=== PATIENT | male | born 2000 | race Caucasian/White ===

== ENCOUNTER 2023-12-09 05:07 | Emergency (ER) | payer OTHER ==
[~2023-12-09] VITALS: Ht 172.7 cm; Wt 113.0 kg
[2023-12-09 05:17] VITALS: TEMP 97.6; O2SAT 97
[2023-12-09 06:02] LABS: BASOPHILS % 0.4 % (0.0-2.0); EOSINOPHILS % 0.7 % (0.0-5.0); HEMATOCRIT. 46.9 % (42.0-52.0); HEMOGLOBIN. 16.4 g/dL (14.0-18.0); LYMPHOCYTES % 16.8 % (20.0-50.0); MEAN CORPUSCULAR VOLUME 94.1 fL (80.0-94.0); MEAN PLATELET VOLUME 9.8 fl (7.4-10.4); MONOCYTES % 3.3 % (2.0-8.0); NEUTROPHILS % 78.8 % (40.0-76.0); PLATELET 287 x1000/uL (130-400); RED BLOOD CELL COUNT 4.98 mill/uL (4.7-6.1); RED CELL DISTRIBUTION WIDTH 13.4 % (11.6-14.6); WHITE BLOOD COUNT 12.2 x1000/uL (4.5-11.0)
[2023-12-09 06:03] LABS: CHLORIDE 114 mEq/L (98-107); SODIUM 148 mEq/L (136-145)
[2023-12-09 06:04] LABS: CALCIUM 9.7 mg/dL (8.7-10.4); CARBON DIOXIDE 23 mEq/L (21-32)
[2023-12-09 06:09] LABS: CREATININE 0.8 mg/dL (0.6-1.3); GLUCOSE 125 mg/dL (70-105); UREA NITROGEN BLOOD 9 mg/dL (9-23)
[2023-12-09 06:10] LABS: ETHANOL BLOOD 206 mg/dL (<10)
[2023-12-09 06:37] VITALS: BP 120/72; PULSE 90; RESP 20; O2SAT 100
== END 2023-12-09 06:38 | disposition home or self-care (01) ==
LOC: ER 05:07
DX: F10.129 Alcohol abuse with intoxication, unspecified (principal); Y90.7 Blood alcohol level of 200-239 mg/100 ml
CPT/HCPCS: 36415; 80048; 80320; 85025; 99283; G0480